=== PATIENT | male | born 1960 | race Caucasian/White ===

== ENCOUNTER 2022-08-09 17:58 | Inpatient (IN) | payer MEDICARE, OTHER ==
[2022-08-09 18:03] LABS: Glucose,Whole Blood 138 mg/dL (70-110)
[2022-08-09] MEDS ORDERED: SODIUM CHLORIDE 0.9% 1,000 ML IV ONE (18:08)
[2022-08-09 18:23] LABS: VBG PH 7.35 (7.31-7.41)
[2022-08-09 18:34] LABS: ALT 13 U/L (4-49); AST 34 U/L (17-59); Acetaminophen <10.0 ug/mL; African American GFR (CKD) >90 (>60 ml/min/1.73 sqM); Albumin 4.1 g/dL (3.5-5.0); Alcohol <10 mg/dL; Alkaline Phosphatase 54 U/L (38-126); Anion Gap 12 mmol/L; Blood Urea Nitrogen 24 mg/dL (9-20); Calcium 8.9 mg/dL (8.4-10.2); Carbon Dioxide 24 mmol/L (22-30); Chloride 102 mmol/L (98-107); Glucose 132 mg/dL (74-99); Non-African American GFR(CKD) >90 (>60 ml/min/1.73 sqM); Potassium 5.1 mmol/L (3.5-5.1); Salicylate <1.0 mg/dL; Sodium 138 mmol/L (137-145); Total Protein 6.4 g/dL (6.3-8.2)
--- NOTE | 2022-08-09 18:43 | CT ---
EXAMINATION TYPE: CT brain wo con DATE OF EXAM: 08/09/2022 HISTORY: AMS CT DLP: 1181.6 mGycm. Automated Exposure Control for Dose Reduction was Utilized. TECHNIQUE: CT scan of the head is performed without contrast. COMPARISON: None. FINDINGS: There is no acute intracranial hemorrhage or midline shift identified. There is diffuse v entricular and sulcal prominence consistent with diffuse age-related cerebral atrophy. There is low- attenuation in the periventricular white matter consistent with chronic small vessel ischemic change. The globes are intact and the visualized sinuses are clear. IMPRESSION: No acute intracranial hemorrhage or midline shift. There is diffuse age-related cerebra l atrophy and chronic small vessel ischemic change noted.
[2022-08-09 18:46] LABS: Lactic Acid, Venous 2.3 mmol/L (0.7-2.0)
[2022-08-09 18:51] LABS: Basophils % (A) 0 %; Eosinophils % (A) 1 %; HCT 36.5 % (39.0-53.0); HGB 12.9 gm/dL (13.0-17.5); Lymphocytes # (A) 0.5 k/uL (1.0-4.8); Lymphocytes % (A) 6 %; MCH 35.1 pg (25.0-35.0); MCHC 35.2 g/dL (31.0-37.0); MCV 99.5 fL (80.0-100.0); Mean Platelet Volume 10.2; Monocytes # (A) 0.4 k/uL (0-1.0); Monocytes % (A) 5 %; Neutrophils # (A) 6.8 k/uL (1.3-7.7); Neutrophils % (A) 88 %; RBC 3.67 m/uL (4.30-5.90); RDW 13.1 % (11.5-15.5); WBC 7.7 k/uL (3.8-10.6)
[2022-08-09 18:54] LABS: INR 1.6 (<1.2); Prothrombin Time 16.3 sec (9.0-12.0)
[2022-08-09 18:55] LABS: Appearance,Urine Clear (Clear); Bilirubin,Urine Negative (Negative); Blood,Urine Negative (Negative); Color,Urine Yellow; Glucose,Urine (UA) Negative (Negative); Ketones,Urine Negative (Negative); Leukocyte Esterase,Urine Negative (Negative); Nitrite,Urine Negative (Negative); PH, Urine 5.5 (5.0-8.0); Protein,Urine Trace (Negative); Specific Gravity,Urine 1.027 (1.001-1.035); Urobilinogen,Urine <2.0 mg/dL (<2.0)
[2022-08-09 18:59] LABS: Partial Thromboplastin Time >200.0 sec (22.0-30.0)
[2022-08-09 19:06] LABS: Amphetamine Screen,Urine Not Detected (NotDetected); Barbiturate Screen,Urine Not Detected (NotDetected); Benzodiazepines Screen,Urine Not Detected (NotDetected); Cocaine Screen,Urine Not Detected (NotDetected); Methadone Screen, Urine Not Detected (NotDetected); Opiate Screen,Urine Not Detected (NotDetected); Oxycodone Screen, Urine Not Detected (NotDetected); Phencyclidine Screen,Urine Not Detected (NotDetected); Tricyclic Antidepressant,Urine Not Detected (NotDetected); Urn Cannabinoid Scrn Not Detected (NotDetected)
--- NOTE | 2022-08-09 19:30 | XR ---
EXAMINATION: XR chest 1V portable DATE AND TIME: 08/09/2022 6:30 PM CLINICAL INDICATION: altered mental status TECHNIQUE: AP upright portable COMPARISON: None FINDINGS: The lungs are clear. The pleural spaces are negative. The cardiac silhouette is not enlarged. The remainder of the mediastinal silhouette is unremarkable. The skeletal structures and soft tissues are negative for acute findings. IMPRESSION: No definite acute radiographic process.
--- NOTE | 2022-08-09 19:58 | CT ---
EXAMINATION TYPE: CT angio head neck with contrast and 3-D reconstructions DATE OF EXAM: 08/09/2022 HISTORY: AMS COMPARISON: CT head without contrast 08/09/2022 CT DLP: 512.6 mGycm. Automated Exposure Control for Dose Reduction was Utilized. TECHNIQUE: CTA scan of the head and neck is performed with IV Contrast, patient injected with 65 mL of Isovue 370, axial images are obtained, coronal and sagittal reformatted images are reviewed. 3D re constructed images are created on an independent workstation and reviewed. FINDINGS: CTA NECK: Carotid/Vascular Structures: The bilateral carotid arterial systems are widely patent, with out filling defect, dissection, or stenosis. There is bilateral atherosclerotic ICA tortuosity. The b ilateral vertebral arterial systems are widely patent, without evidence of dissection or stenosis. Other: No incidental findings. CTA HEAD: The anterior and posterior arterial circulation is widely patent, without filling defect, s tenosis, dissection, or aneurysm. Other: No incidental findings. IMPRESSION: No acute process. NASCET criteria was used in interpretation of this exam?
--- NOTE | 2022-08-09 21:12 | ED ---
General Adult HPI - General Chief complaint: Neuro Symptoms/Deficit Stated complaint: unconscious Time Seen by Provider: 08/09/22 18:00 Source: EMS Mode of arrival: EMS Limitations: altered mental status - History of Present Illness Initial comments: 62-year-old male with past medical history of advanced ALS, who presents to the emergency department with altered mental status. He was last seen in his normal well at 5:30 in the morning by his son who lives with him. Son left for work. He came home around 5 PM and found the patient unresponsive in the garage. The door was closed. The patient was sitting on their riding lawnmower. Lawnmower was running the patient was slumped over to his side unresponsive. Unknown how long the patient has been there for. He had a GCS of 3 for them. They did attempt intubation however the patient was clenching. Upon arrival to the hospital the patient was able to open his eyes and look around. He is not following any commands. Son does arrive to bedside and provides the history. States that his father has advanced ALS. He has difficulty swallowing, eating solid foods. States his speech is extremely hard understand. He does have contractures of his upper extremities. He has difficulties with ambulation and should use a walker however is very stubborn. Patient made comments to him a couple weeks ago that he wanted to go hospice. He goes for routine visits at the ALS clinic - patient is taken to these appointments by his sister. He is with only one son. - Related Data Home Medications Medication Instructions Recorded Confirmed Furosemide [Lasix] 20 mg PO DAILY PRN 08/09/22 08/09/22 Gabapentin [Gabapentin Oral Soln] 300 mg PO TID PRN 08/09/22 08/09/22 Lisinopril-Hctz 20-12.5 mg 1 tab PO DAILY 08/09/22 08/09/22 [Zestoretic 20-12.5] Pantoprazole Sodium [Protonix] 40 mg PO DAILY 08/09/22 08/09/22 Allergies Allergy/AdvReac Type Severity Reaction Status Date / Time No Known Allergies Allergy Unverified 08/09/22 21:19 Review of Systems ROS Statement: Those systems with pertinent positive or pertinent negative responses have been documented in the HPI. ROS Other: All systems not noted in ROS Statement are negative. Past Medical History Past Medical History: CVA/TIA History of Any Multi-Drug Resistant Organisms: Unobtainable Past Surgical History: No Surgical Hx Reported Past Psychological History: Unable to Obtain Smoking Status: Unknown if ever smoked Past Alcohol Use History: Unable to Obtain Past Drug Use History: Unable to Obtain General Exam Limitations: altered mental status General appearance: obtunded, in distress Head exam: Present: atraumatic, normocephalic, normal inspection Eye exam: Present: normal appearance, PERRL, EOMI. Absent: scleral icterus, conjunctival injection, periorbital swelling ENT exam: Present: normal exam, mucous membranes moist Neck exam: Present: normal inspection. Absent: tenderness, meningismus, lymphadenopathy Respiratory exam: Present: decreased breath sounds Cardiovascular Exam: Present: regular rate, normal rhythm, normal heart sounds. Absent: systolic murmur, diastolic murmur, rubs, gallop, clicks GI/Abdominal exam: Present: soft, normal bowel sounds. Absent: distended, tenderness, guarding, rebound, rigid Back exam: Present: normal inspection Neurological exam: Present: altered, other (contractures b/l upper extremites) Psychiatric exam: Present: flat affect Skin exam: Present: other (flushed) Course Vital Signs 08/09/22 08/09/22 08/10/22 17:59 20:27 00:20 Temperature Pulse Rate 99 71 109 H Pulse Rate [ Pulse Oximetery ] Respiratory 16 14 13 Rate Blood Pressure 102/72 96/66 133/67 Blood Pressure [Right Arm] O2 Sat by Pulse 92 L 99 98 Oximetry 08/10/22 08/10/22 08/10/22 02:30 04:48 05:35 Temperature Pulse Rate 110 H 94 94 Pulse Rate [ Pulse Oximetery ] Respiratory 17 13 15 Rate Blood Pressure 165/95 150/58 125/86 Blood Pressure [Right Arm] O2 Sat by Pulse 99 99 98 Oximetry 08/10/22 08/10/22 08/10/22 08:22 12:45 12:50 Temperature 100.2 F H Pulse Rate Pulse Rate [ 89 Pulse Oximetery ] Respiratory 18 18 18 Rate Blood Pressure Blood Pressure 101/63 147/88 [Right Arm] O2 Sat by Pulse 99 98 Oximetry 08/10/22 08/10/22 15:18 16:00 Temperature 99.5 F Pulse Rate Pulse Rate [ 89 82 Pulse Oximetery ] Respiratory 18 16 Rate Blood Pressure Blood Pressure 136/72 [Right Arm] O2 Sat by Pulse 98 Oximetry - Reevaluation(s) Reevaluation #1: Spoke with Dr. Mcpherson to discuss whether the patient should be a candidate for possible hyperbaric due to altered mental status and carbon monoxide poisoning. Recommends pursuing possible transfer 08/09/221909 Reevaluation #2: Spoke with poison control who does provide list of closest hyperbaric chambers 08/09/221924 Reevaluation #3: Spoke with [facility] to attempt to transfer 08/09/221925 Reevaluation #4: C refuses due to capacity 08/09/221999 Reevaluation #5: [facility] contacted for transfer 08/09/[address] Quezada at [facility]. States that the patient would be a candidate for hyperbaric due to his syncope/ams associated with the carbon monoxide poisoning however his advanced ALS disqualifies him. States that the hyperbaric treatment prevents neurologic sequelae 6 months to one year from insult. Patient does not have good prognosis in 6 months due to his ALS alone therefore believe hyperbaric treatments will be futile. This is discussed with family who understands and agreeable to having the patient stay hospitalized at our facility. 08/09/222037 EKG Findings - EKG Comments: EKG Findings:: EKG demonstrates sinus rhythm with a rate of 97. MO interval 188. QRS 109. QTC of 423. No acute ST segment elevations or depressions Medical Decision Making - Medical Decision Making Upon arrival patient was placed into trauma 2. He is arousable to verbal stimuli. IV is established and laboratory studies are conducted. Carbon monoxide is greater than 43. CT of the brain demonstrates no acute process. I did call and speak with Dr. Chavis who does recommend that the patient be transferred if possible for hyperbaric treatment. I did call poison control, [facility] and [facility]. Physician at [facility] states the patient is not a candidate for hyperbaric due to his baseline advanced ALS. This is discussed with the patient's family. Patient will be admitted and a palliative consult will be placed. Spoke with Sergio for [facility] was agreeable to admit the patient - Lab Data Result diagrams: 08/11/22 07:34 08/11/22 07:34 Lab Results 08/09/22 08/09/22 08/09/22 Range/Units 16:40 16:40 18:02 WBC (3.8-10.6) k/uL RBC (4.30-5.90) m/uL Hgb (13.0-17.5) gm/dL Hct (39.0-53.0) % MCV (80.0-100.0) fL MCH (25.0-35.0) pg MCHC (31.0-37.0) g/dL RDW (11.5-15.5) % Plt Count (150-450) k/uL MPV Neutrophils % % Lymphocytes % % Monocytes % % Eosinophils % % Basophils % % Neutrophils # (1.3-7.7) k/uL Lymphocytes # (1.0-4.8) k/uL Monocytes # (0-1.0) k/uL Eosinophils # (0-0.7) k/uL Basophils # (0-0.2) k/uL Manual Slide Review PT (9.0-12.0) sec INR (<1.2) APTT (22.0-30.0) sec VBG pH (7.31-7.41) VBG pCO2 (37-51) mmHg VBG HCO3 (24-28) mmol/L Carbon Monoxide, Quant (<10.0) % Sodium (137-145) mmol/L Potassium (3.5-5.1) mmol/L Chloride (98-107) mmol/L Carbon Dioxide (22-30) mmol/L Anion Gap mmol/L BUN (9-20) mg/dL Creatinine (0.66-1.25) mg/dL Est GFR (CKD-EPI)AfAm (>60 ml/min/1.73 sqM) Est GFR (CKD-EPI)NonAf (>60 ml/min/1.73 sqM) Glucose (74-99) mg/dL POC Glucose (mg/dL) 138 H (70-110) mg/dL POC Glu Final Coat Sprayer ID Junito Raymundo Lactic Ac Sepsis Rflx Plasma Lactic Acid Aureliano (0.7-2.0) mmol/L Calcium (8.4-10.2) mg/dL Total Bilirubin (0.2-1.3) mg/dL AST (17-59) U/L ALT (4-49) U/L Alkaline Phosphatase (38-126) U/L Ammonia (<30) umol/L Troponin I (0.000-0.034) ng/mL Total Protein (6.3-8.2) g/dL Albumin (3.5-5.0) g/dL TSH (0.465-4.680) mIU/L Urine Color Yellow Urine Appearance Clear (Clear) Urine pH 5.5 (5.0-8.0) Ur Specific [place] 1.027 (1.001-1.035) Urine Protein Trace H (Negative) Urine Glucose (UA) Negative (Negative) Urine Ketones Negative (Negative) Urine Blood Negative (Negative) Urine Nitrite Negative (Negative) Urine Bilirubin Negative (Negative) Urine Urobilinogen <2.0 (<2.0) mg/dL Ur Leukocyte Esterase Negative (Negative) Salicylates mg/dL Urine Opiates Screen Not Detected (NotDetected) Ur Oxycodone Screen Not Detected (NotDetected) Urine Methadone Screen Not Detected (NotDetected) Ur Propoxyphene Screen Not Detected (NotDetected) Acetaminophen ug/mL Ur Barbiturates Screen Not Detected (NotDetected) U Tricyclic Antidepress Not Detected (NotDetected) Ur Phencyclidine Scrn Not Detected (NotDetected) Ur Amphetamines Screen Not Detected (NotDetected) U Methamphetamines Scrn Not Detected (NotDetected) U Benzodiazepines Scrn Not Detected (NotDetected) Urine Cocaine Screen Not Detected (NotDetected) U Marijuana (THC) Screen Not Detected (NotDetected) Serum Alcohol mg/dL 08/09/22 08/09/22 08/09/22 Range/Units 18:15 18:15 18:15 WBC 7.7 (3.8-10.6) k/uL RBC 3.67 L (4.30-5.90) m/uL Hgb 12.9 L (13.0-17.5) gm/dL Hct 36.5 L (39.0-53.0) % MCV 99.5 (80.0-100.0) fL MCH 35.1 H (25.0-35.0) pg MCHC 35.2 (31.0-37.0) g/dL RDW 13.1 (11.5-15.5) % Plt Count (150-450) k/uL MPV 10.2 Neutrophils % 88 % Lymphocytes % 6 % Monocytes % 5 % Eosinophils % 1 % Basophils % 0 % Neutrophils # 6.8 (1.3-7.7) k/uL Lymphocytes # 0.5 L (1.0-4.8) k/uL Monocytes # 0.4 (0-1.0) k/uL Eosinophils # 0.0 (0-0.7) k/uL Basophils # 0.0 (0-0.2) k/uL Manual Slide Review Performed PT 16.3 H (9.0-12.0) sec INR 1.6 H (<1.2) APTT >200.0 H* (22.0-30.0) sec VBG pH (7.31-7.41) VBG pCO2 (37-51) mmHg VBG HCO3 (24-28) mmol/L Carbon Monoxide, Quant (<10.0) % Sodium 138 (137-145) mmol/L Potassium 5.1 (3.5-5.1) mmol/L Chloride 102 (98-107) mmol/L Carbon Dioxide 24 (22-30) mmol/L Anion Gap 12 mmol/L BUN 24 H (9-20) mg/dL Creatinine 0.79 (0.66-1.25) mg/dL Est GFR (CKD-EPI)AfAm >90 (>60 ml/min/1.73 sqM) Est GFR (CKD-EPI)NonAf >90 (>60 ml/min/1.73 sqM) Glucose 132 H (74-99) mg/dL POC Glucose (mg/dL) (70-110) mg/dL POC Glu Final Coat Sprayer ID Lactic Ac Sepsis Rflx Plasma Lactic Acid Aureliano (0.7-2.0) mmol/L Calcium 8.9 (8.4-10.2) mg/dL Total Bilirubin 1.0 (0.2-1.3) mg/dL AST 34 (17-59) U/L ALT 13 (4-49) U/L Alkaline Phosphatase 54 (38-126) U/L Ammonia (<30) umol/L Troponin I (0.000-0.034) ng/mL Total Protein 6.4 (6.3-8.2) g/dL Albumin 4.1 (3.5-5.0) g/dL TSH 2.040 (0.465-4.680) mIU/L Urine Color Urine Appearance (Clear) Urine pH (5.0-8.0) Ur Specific [place] (1.001-1.035) Urine Protein (Negative) Urine Glucose (UA) (Negative) Urine Ketones (Negative) Urine Blood (Negative) Urine Nitrite (Negative) Urine Bilirubin (Negative) Urine Urobilinogen (<2.0) mg/dL Ur Leukocyte Esterase (Negative) Salicylates <1.0 mg/dL Urine Opiates Screen (NotDetected) Ur Oxycodone Screen (NotDetected) Urine Methadone Screen (NotDetected) Ur Propoxyphene Screen (NotDetected) Acetaminophen <10.0 ug/mL Ur Barbiturates Screen (NotDetected) U Tricyclic Antidepress (NotDetected) Ur Phencyclidine Scrn (NotDetected) Ur Amphetamines Screen (NotDetected) U Methamphetamines Scrn (NotDetected) U Benzodiazepines Scrn (NotDetected) Urine Cocaine Screen (NotDetected) U Marijuana (THC) Screen (NotDetected) Serum Alcohol <10 mg/dL 08/09/22 08/09/22 08/09/22 Range/Units 18:15 18:15 18:15 WBC (3.8-10.6) k/uL RBC (4.30-5.90) m/uL Hgb (13.0-17.5) gm/dL Hct (39.0-53.0) % MCV (80.0-100.0) fL MCH (25.0-35.0) pg MCHC (31.0-37.0) g/dL RDW (11.5-15.5) % Plt Count (150-450) k/uL MPV Neutrophils % % Lymphocytes % % Monocytes % % Eosinophils % % Basophils % % Neutrophils # (1.3-7.7) k/uL Lymphocytes # (1.0-4.8) k/uL Monocytes # (0-1.0) k/uL Eosinophils # (0-0.7) k/uL Basophils # (0-0.2) k/uL Manual Slide Review PT (9.0-12.0) sec INR (<1.2) APTT (22.0-30.0) sec VBG pH 7.35 (7.31-7.41) VBG pCO2 50 (37-51) mmHg VBG HCO3 28 (24-28) mmol/L Carbon Monoxide, Quant (<10.0) % Sodium (137-145) mmol/L Potassium (3.5-5.1) mmol/L Chloride (98-107) mmol/L Carbon Dioxide (22-30) mmol/L Anion Gap mmol/L BUN (9-20) mg/dL Creatinine (0.66-1.25) mg/dL Est GFR (CKD-EPI)AfAm (>60 ml/min/1.73 sqM) Est GFR (CKD-EPI)NonAf (>60 ml/min/1.73 sqM) Glucose (74-99) mg/dL POC Glucose (mg/dL) (70-110) mg/dL POC Glu Final Coat Sprayer ID Lactic Ac Sepsis Rflx Plasma Lactic Acid Aureliano 2.3 H* (0.7-2.0) mmol/L Calcium (8.4-10.2) mg/dL Total Bilirubin (0.2-1.3) mg/dL AST (17-59) U/L ALT (4-49) U/L Alkaline Phosphatase (38-126) U/L Ammonia <9 (<30) umol/L Troponin I <0.012 (0.000-0.034) ng/mL Total Protein (6.3-8.2) g/dL Albumin (3.5-5.0) g/dL TSH (0.465-4.680) mIU/L Urine Color Urine Appearance (Clear) Urine pH (5.0-8.0) Ur Specific [place] (1.001-1.035) Urine Protein (Negative) Urine Glucose (UA) (Negative) Urine Ketones (Negative) Urine Blood (Negative) Urine Nitrite (Negative) Urine Bilirubin (Negative) Urine Urobilinogen (<2.0) mg/dL Ur Leukocyte Esterase (Negative) Salicylates mg/dL Urine Opiates Screen (NotDetected) Ur Oxycodone Screen (NotDetected) Urine Methadone Screen (NotDetected) Ur Propoxyphene Screen (NotDetected) Acetaminophen ug/mL Ur Barbiturates Screen (NotDetected) U Tricyclic Antidepress (NotDetected) Ur Phencyclidine Scrn (NotDetected) Ur Amphetamines Screen (NotDetected) U Methamphetamines Scrn (NotDetected) U Benzodiazepines Scrn (NotDetected) Urine Cocaine Screen (NotDetected) U Marijuana (THC) Screen (NotDetected) Serum Alcohol mg/dL 08/09/22 08/09/22 Range/Units 18:16 18:46 WBC (3.8-10.6) k/uL RBC (4.30-5.90) m/uL Hgb (13.0-17.5) gm/dL Hct (39.0-53.0) % MCV (80.0-100.0) fL MCH (25.0-35.0) pg MCHC (31.0-37.0) g/dL RDW (11.5-15.5) % Plt Count (150-450) k/uL MPV Neutrophils % % Lymphocytes % % Monocytes % % Eosinophils % % Basophils % % Neutrophils # (1.3-7.7) k/uL Lymphocytes # (1.0-4.8) k/uL Monocytes # (0-1.0) k/uL Eosinophils # (0-0.7) k/uL Basophils # (0-0.2) k/uL Manual Slide Review PT (9.0-12.0) sec INR (<1.2) APTT (22.0-30.0) sec VBG pH (7.31-7.41) VBG pCO2 (37-51) mmHg VBG HCO3 (24-28) mmol/L Carbon Monoxide, Quant >20.0 H* (<10.0) % Sodium (137-145) mmol/L Potassium (3.5-5.1) mmol/L Chloride (98-107) mmol/L Carbon Dioxide (22-30) mmol/L Anion Gap mmol/L BUN (9-20) mg/dL Creatinine (0.66-1.25) mg/dL Est GFR (CKD-EPI)AfAm (>60 ml/min/1.73 sqM) Est GFR (CKD-EPI)NonAf (>60 ml/min/1.73 sqM) Glucose (74-99) mg/dL POC Glucose (mg/dL) (70-110) mg/dL POC Glu Final Coat Sprayer ID Lactic Ac Sepsis Rflx Y Plasma Lactic Acid Aureliano (0.7-2.0) mmol/L Calcium (8.4-10.2) mg/dL Total Bilirubin (0.2-1.3) mg/dL AST (17-59) U/L ALT (4-49) U/L Alkaline Phosphatase (38-126) U/L Ammonia (<30) umol/L Troponin I (0.000-0.034) ng/mL Total Protein (6.3-8.2) g/dL Albumin (3.5-5.0) g/dL TSH (0.465-4.680) mIU/L Urine Color Urine Appearance (Clear) Urine pH (5.0-8.0) Ur Specific [place] (1.001-1.035) Urine Protein (Negative) Urine Glucose (UA) (Negative) Urine Ketones (Negative) Urine Blood (Negative) Urine Nitrite (Negative) Urine Bilirubin (Negative) Urine Urobilinogen (<2.0) mg/dL Ur Leukocyte Esterase (Negative) Salicylates mg/dL Urine Opiates Screen (NotDetected) Ur Oxycodone Screen (NotDetected) Urine Methadone Screen (NotDetected) Ur Propoxyphene Screen (NotDetected) Acetaminophen ug/mL Ur Barbiturates Screen (NotDetected) U Tricyclic Antidepress (NotDetected) Ur Phencyclidine Scrn (NotDetected) Ur Amphetamines Screen (NotDetected) U Methamphetamines Scrn (NotDetected) U Benzodiazepines Scrn (NotDetected) Urine Cocaine Screen (NotDetected) U Marijuana (THC) Screen (NotDetected) Serum Alcohol mg/dL Critical Care Time Critical Care Time: Yes Critical Care Time: 35 minutes Disposition Clinical Impression: Carbon monoxide poisoning, Acute encephalopathy, ALS (amyotrophic lateral sclerosis) Disposition: ADMITTED IP TO THIS [facility] Condition: Serious Is patient prescribed a controlled substance at d/c from ED?: No Time of Disposition: 21:14 Decision to Admit Reason: Admit from EC Decision Date: 08/09/22 Decision Time: 21:14
[2022-08-09] MEDS ORDERED: NALOXONE 0.4 MG/ML 1 ML VIAL IV PRN (21:20)
[2022-08-10 03:03] LABS: Basophils % (A) 0 %; Eosinophils % (A) 0 %; HCT 37.4 % (39.0-53.0); HGB 12.8 gm/dL (13.0-17.5); Lymphocytes # (A) 0.5 k/uL (1.0-4.8); Lymphocytes % (A) 7 %; MCH 34.2 pg (25.0-35.0); MCHC 34.2 g/dL (31.0-37.0); MCV 99.8 fL (80.0-100.0); Mean Platelet Volume 8.1; Monocytes # (A) 0.3 k/uL (0-1.0); Monocytes % (A) 5 %; Neutrophils # (A) 6.3 k/uL (1.3-7.7); Neutrophils % (A) 87 %; Platelet Count 192 k/uL (150-450); RBC 3.75 m/uL (4.30-5.90); RDW 12.9 % (11.5-15.5); WBC 7.2 k/uL (3.8-10.6)
[2022-08-10 03:34] LABS: African American GFR (CKD) >90 (>60 ml/min/1.73 sqM); Anion Gap 9 mmol/L; Blood Urea Nitrogen 20 mg/dL (9-20); Carbon Dioxide 25 mmol/L (22-30); Chloride 103 mmol/L (98-107); Glucose 129 mg/dL (74-99); Non-African American GFR(CKD) >90 (>60 ml/min/1.73 sqM); Potassium 4.4 mmol/L (3.5-5.1); Sodium 137 mmol/L (137-145)
[2022-08-10] MEDS ORDERED: ACETAMINOPHEN SUPPOSITORY 650 MG SUPP RECTAL PRN (08:35)
--- NOTE | 2022-08-10 08:54 | P.HPIM ---
History of Present Illness On-call hospitalist covering for Dr. Simeon This is a pleasant 62 years old male with past medical history of CVA/TIA, currently not on home medication record documents. Patient could not provide information, no family at bedside. I made an effort to contact next of kin Roxana figueredo at [phone] and left a message to call back. Also I contacted his son Lencho Betancourt at [phone], there is no voicemail setup placed for him and I called the twice. No family at bedside. Also the bedside nurse did not have information about the patient. ER attending overnight already left. Patient is on face mask with nonrebreather 15 L/m, he does not look in respiratory distress. He looks at me but looks nonverbal, he can communicate by closing eyes when I ask him. However not sure if he is confused on. I asked him if he is in pain to close his eyes and he did, however is unknown where the pain at. Patient placed a lidocaine patch and Tylenol rectally when necessary. It looks patient and able to move both upper and lower extremities. He has some mild bilateral leg edema probably from disuse ER note was reviewed Vitas looks stable He was on nonrebreather at 12-15 L/m On admission,currently his oxygen saturation is 98%. Mildly tachycardic at 94. CBC is unremarkable except for mild anemia and leukopenia. INR is 1.6 but PTT more than 200. Carbon monoxide is more than 20 BMP is unremarkable. Liver enzymes elevated. Troponin is negative 2. TSH normal at 2.0. Negative salicylate, acetaminophen levels and serum alcohol level EKG showing normal sinus rhythm at [address]-T changes CTA of the brain and neck no acute process for both. CT of the brain: No acute process. There is diffuse cerebral atrophy and chronic small vessel ischemic changes. Chest x-ray: No process In the emergency room patient received 1 L of normal saline. Review of Systems ROS unobtainable: due to mental status Past Medical History Past Medical History: CVA/TIA History of Any Multi-Drug Resistant Organisms: Unobtainable Past Surgical History: No Surgical Hx Reported Past Psychological History: Unable to Obtain Smoking Status: Unknown if ever smoked Past Alcohol Use History: Unable to Obtain Past Drug Use History: Unable to Obtain Medications and Allergies Home Medications Medication Instructions Recorded Confirmed Type Furosemide [Lasix] 20 mg PO DAILY PRN 08/09/22 08/09/22 History Gabapentin [Gabapentin Oral Soln] 300 mg PO TID PRN 08/09/22 08/09/22 History Lisinopril-Hctz 20-12.5 mg 1 tab PO DAILY 08/09/22 08/09/22 History [Zestoretic 20-12.5] Pantoprazole Sodium [Protonix] 40 mg PO DAILY 08/09/22 08/09/22 History Allergies Allergy/AdvReac Type Severity Reaction Status Date / Time No Known Allergies Allergy Unverified 08/09/22 21:19 Physical Exam Vitals: Vital Signs Pulse Resp BP BP Pulse Ox 08/10/22 08:22 18 101/63 99 08/10/22 05:35 94 15 125/86 98 08/10/22 04:48 94 13 150/58 99 08/10/22 02:30 110 H 17 165/95 99 08/10/22 00:20 109 H 13 133/67 98 08/09/22 20:27 71 14 96/66 99 08/09/22 17:59 99 16 102/72 92 L Intake and Output 08/09/22 08/10/22 08/10/22 22:59 06:59 14:59 Other: Weight 83.915 kg -GENERAL: The patient is awake, he can close his eyes but he did not talk to me, he could not move extremities HEENT: Pupils are round and equally reacting to light. EOMI. No scleral icterus. No conjunctival pallor. Normocephalic, atraumatic. No pharyngeal erythema. No thyromegaly. CARDIOVASCULAR: S1 and S2 present. No murmurs, rubs, or gallops. -PULMONARY: Chest is clear to auscultation, no wheezing or crackles. Patient on a breathing mask ABDOMEN: Soft, nontender, nondistended, normoactive bowel sounds. No palpable organomegaly. MUSCULOSKELETAL: No joint swelling or deformity. EXTREMITIES: No cyanosis, clubbing, or pedal edema. -NEUROLOGICAL: Patient complained eyes but has mask face, not moving upper or lower extremities. Exam is limited by patient condition SKIN: No rashes. no petechiae. Results CBC & Chem 7: 08/10/22 02:35 08/10/22 02:35 Labs: Abnormal Lab Results - Last 24 Hours (Table) 08/09/22 08/09/22 08/09/22 Range/Units 16:40 18:02 18:15 RBC 3.67 L (4.30-5.90) m/uL Hgb 12.9 L (13.0-17.5) gm/dL Hct 36.5 L (39.0-53.0) % MCH 35.1 H (25.0-35.0) pg Lymphocytes # 0.5 L (1.0-4.8) k/uL PT (9.0-12.0) sec INR (<1.2) APTT (22.0-30.0) sec Carbon Monoxide, Quant (<10.0) % BUN (9-20) mg/dL Glucose (74-99) mg/dL POC Glucose (mg/dL) 138 H (70-110) mg/dL Plasma Lactic Acid Aureliano (0.7-2.0) mmol/L Urine Protein Trace H (Negative) 08/09/22 08/09/22 08/09/22 Range/Units 18:15 18:15 18:15 RBC (4.30-5.90) m/uL Hgb (13.0-17.5) gm/dL Hct (39.0-53.0) % MCH (25.0-35.0) pg Lymphocytes # (1.0-4.8) k/uL PT 16.3 H (9.0-12.0) sec INR 1.6 H (<1.2) APTT >200.0 H* (22.0-30.0) sec Carbon Monoxide, Quant (<10.0) % BUN 24 H (9-20) mg/dL Glucose 132 H (74-99) mg/dL POC Glucose (mg/dL) (70-110) mg/dL Plasma Lactic Acid Aureliano 2.3 H* (0.7-2.0) mmol/L Urine Protein (Negative) 08/09/22 08/10/22 08/10/22 Range/Units 18:16 02:35 02:35 RBC 3.75 L (4.30-5.90) m/uL Hgb 12.8 L (13.0-17.5) gm/dL Hct 37.4 L (39.0-53.0) % MCH (25.0-35.0) pg Lymphocytes # 0.5 L (1.0-4.8) k/uL PT (9.0-12.0) sec INR (<1.2) APTT (22.0-30.0) sec Carbon Monoxide, Quant >20.0 H* (<10.0) % BUN (9-20) mg/dL Glucose 129 H (74-99) mg/dL POC Glucose (mg/dL) (70-110) mg/dL Plasma Lactic Acid Aureliano (0.7-2.0) mmol/L Urine Protein (Negative) Assessment and Plan Assessment: Acute Carbon monoxide poisoning Advanced amyotrophic lateral sclerosis Altered mental status, secondary to metabolic/toxic encephalopathy Plan: This is a pleasant 62 years old male with a ALS presents with CO poisoning No family at bedside, I called and left a message as above the response is pending We'll consult pulmonary and neurology service Keep nothing by mouth with gentle hydration and change his fluids to D5 normal saline at 75 mL/h Pain management with lidocaine and Tylenol when necessary. Labs and medication were reviewed.. Continue same treatment. Continue with symptomatic treatment. Resume home medication. Monitor lytes and vitals. DVT and GI prophylaxis. Further recommendations as per clinical course of the patient DVT prophylaxis: Subcutaneous heparin GI Prophylaxis: Pepcid Prognosis is guarded
[2022-08-10] MEDS ORDERED: LIDOCAINE 5% PATCH TOPICAL SCH (09:00)
[2022-08-10] MEDS ORDERED: HEPARIN SODIUM,PORCINE/PF 5,000 UNIT/0.5 ML SYRINGE SQ SCH (09:00)
[2022-08-10] MEDS: DEXTROSE 5%-0.9% NACL 1,000 ML IV SCH (10:16)
[2022-08-10] MEDS: FAMOTIDINE 20 MG/2 ML VIAL IV SCH ×2 (10:17→20:45)
--- NOTE | 2022-08-10 10:34 | P.PN ---
Progress Note - Text Progress Note Date: 08/10/22 Patient awake and attempting to answer questions. Cannot understand speech secondary to ALS and NR mask. He does follow commands. Attempted to call his son, Lencho, to set up a meeting. No answer and no option to leave a voicemail. Spoke with the patient's sister, Roxana, she stated that Lencho has POA and suggested calling him again later. She thinks he was at the hospital late and is probable sleeping. Palliative care information and contact number left at the patient's bedside. Ashley Serrano [facility] Palliative Care [facility] [phone] Email: [email or web address]
[2022-08-10] MEDS: SODIUM CHLORIDE 0.9% 1,000 ML IV SCH ×2 (12:17→12:29)
--- NOTE | 2022-08-10 12:54 | P.CNPUL ---
History of Present Illness Consult date: 08/10/22 Requesting physician: Cristhian Daugherty Reason for consult: other (Carbon dioxide poisoning) Chief complaint: Altered mental status History of present illness: This is a 62-year-old male patient with a known history of hypertension, gastroesophageal reflux disease, CVA/TIA and also has amyotrophic lateral sclerosis/ALS. He has advanced ALS with difficulty in swallowing, difficulty in speech and contracted upper extremities and resides with his son. Yesterday he was seen by his son at 5:30 in the morning prior to him going to work. When the son got home at 5 PM he found his father in the garage slumped over on the riding lawnmower that had been running. Unknown downtime. EMS arrived and found him having G CSF 3 and they did attempt to intubate the patient however were unable to due to patient clenching his teeth. Upon arrival to the emergency room he was awake and looking around. According to the son who is at the patient's bedside the patient mentioned a couple weeks ago wanting to go into hospice. Computed tomography scan of the brain revealed no acute intracranial hemorrhage or midline shift. Chest x-ray revealed no acute process. CT angiogram of the head and neck revealed widely patent arterial circulation with no incidental findings. White count 7.2. Hemoglobin 12.8. Sodium 137. Potassium 4.4. Bicarb 25. BUN 20. Creatinine 0.67. Troponins negative 2. Serum alcohol, acetaminophen and salicylate levels were all negative. He was found to have carbon monoxide greater than 20. There were initial attempts to transfer the patient for hyperbaric therapy however due to his advanced ALS this was felt to be futile and was not accepted. He is admitted here for continued monitoring. He is seen today in the emergency department. His eyes are open. He has attempting to talk. His speech is quite garbled. He does follow simple commands. He is currently on 15 L high flow via a nonrebreather mask. O2 saturations in the high 90s. Review of Systems ROS unobtainable: due to mental status Past Medical History Past Medical History: CVA/TIA History of Any Multi-Drug Resistant Organisms: Unobtainable Past Surgical History: No Surgical Hx Reported Past Psychological History: Unable to Obtain Smoking Status: Unknown if ever smoked Past Alcohol Use History: Unable to Obtain Past Drug Use History: Unable to Obtain Medications and Allergies Home Medications Medication Instructions Recorded Confirmed Type Furosemide [Lasix] 20 mg PO DAILY PRN 08/09/22 08/09/22 History Gabapentin [Gabapentin Oral Soln] 300 mg PO TID PRN 08/09/22 08/09/22 History Lisinopril-Hctz 20-12.5 mg 1 tab PO DAILY 08/09/22 08/09/22 History [Zestoretic 20-12.5] Pantoprazole Sodium [Protonix] 40 mg PO DAILY 08/09/22 08/09/22 History Allergies Allergy/AdvReac Type Severity Reaction Status Date / Time No Known Allergies Allergy Unverified 08/09/22 21:19 Physical Exam Vitals: Vital Signs Pulse Resp BP BP Pulse Ox 08/10/22 08:22 18 101/63 99 08/10/22 05:35 94 15 125/86 98 08/10/22 04:48 94 13 150/58 99 08/10/22 02:30 110 H 17 165/95 99 08/10/22 00:20 109 H 13 133/67 98 08/09/22 20:27 71 14 96/66 99 08/09/22 17:59 99 16 102/72 92 L Intake and Output 08/09/22 08/10/22 08/10/22 22:59 06:59 14:59 Other: Weight 83.915 kg GENERAL EXAM: Alert, weak, debilitated 72-year-old male patient, 15 L high flow nonrebreather mask, in no apparent distress. HEAD: Normocephalic. EYES: Normal reaction of pupils, equal size. NOSE: Clear with pink turbinates. THROAT: No erythema or exudates. NECK: No masses, no JVD. CHEST: No chest wall deformity. LUNGS: Equal air entry with no crackles, wheeze, rhonchi or dullness. CVS: S1 and S2 normal with no audible murmur, regular rhythm. ABDOMEN: No hepatosplenomegaly, normal bowel sounds, no guarding or rigidity. SPINE: No scoliosis or deformity SKIN: No rashes CENTRAL NERVOUS SYSTEM: No focal deficits, tone is normal in all 4 extremities. EXTREMITIES: Upper extremity contractures. Peripheral pulses are intact. Results - Laboratory Findings CBC and BMP: 08/10/22 02:35 08/10/22 02:35 PT/INR, D-dimer PT 16.3 sec (9.0-12.0) H 08/09/22 18:15 INR 1.6 (<1.2) H 08/09/22 18:15 Abnormal lab findings: Abnormal Labs 08/09/22 08/09/22 08/09/22 16:40 18:02 18:15 RBC 3.67 L Hgb 12.9 L Hct 36.5 L MCH 35.1 H Lymphocytes # 0.5 L PT INR APTT Carbon Monoxide, Quant BUN Glucose POC Glucose (mg/dL) 138 H Plasma Lactic Acid Aureliano Urine Protein Trace H 08/09/22 08/09/22 08/09/22 18:15 18:15 18:15 RBC Hgb Hct MCH Lymphocytes # PT 16.3 H INR 1.6 H APTT >200.0 H* Carbon Monoxide, Quant BUN 24 H Glucose 132 H POC Glucose (mg/dL) Plasma Lactic Acid Aureliano 2.3 H* Urine Protein 08/09/22 08/10/22 08/10/22 18:16 02:35 02:35 RBC 3.75 L Hgb 12.8 L Hct 37.4 L MCH Lymphocytes # 0.5 L PT INR APTT Carbon Monoxide, Quant >20.0 H* BUN Glucose 129 H POC Glucose (mg/dL) Plasma Lactic Acid Aureliano Urine Protein - Diagnostic Findings Chest x-ray: image reviewed Assessment and Plan Assessment: Altered mental status secondary to carbon monoxide poisoning in an apparent suicide attempt due to advanced amyotrophic lateral sclerosis/ALS Advanced ALS with garbled speech, difficulty swallowing, upper extremity contractures and weakness. Initially following at an a ALS clinic History of previous CVA/C TIA Hypertension Gastroesophageal reflux disease Plan: The patient was seen and evaluated Chest x-ray, CAT scans and medications reviewed Transition to 15 L high flow nasal cannula Continue with high FiO2 treatment His ALS is quite advanced and terminal Palliative care consult in place Repeat a carbon monoxide level We will continue to follow and make further recommendations based on his clinical status I have personally seen and examined the patient, performed the documentation and the assessment and plan as written. Number of minutes spent on the visit: 20.
[2022-08-10] MEDS ORDERED: ACETAMINOPHEN IV (For NPO) 1,000 MG in EMPTY BAG 1 BAG IVPB SCH (18:00)
[2022-08-10] MEDS: ACETAMINOPHEN IV (For NPO) 1,000 MG in EMPTY BAG 1 BAG IVPB SCH (20:45)
[2022-08-10] MEDS ORDERED: HYDROmorphone 0.5 MG/0.5 ML SYRINGE IVP STA (22:45)
[2022-08-11] MEDS: ACETAMINOPHEN IV (For NPO) 1,000 MG in EMPTY BAG 1 BAG IVPB SCH ×3 (01:22→15:54)
[2022-08-11] MEDS: DEXTROSE 5%-0.9% NACL 1,000 ML IV SCH ×2 (02:22→15:49)
[2022-08-11 09:31] LABS: African American GFR (CKD) >90 (>60 ml/min/1.73 sqM); Anion Gap 5 mmol/L; Blood Urea Nitrogen 15 mg/dL (9-20); Calcium 8.1 mg/dL (8.4-10.2); Carbon Dioxide 28 mmol/L (22-30); Chloride 106 mmol/L (98-107); Glucose 97 mg/dL (74-99); Magnesium 1.8 mg/dL (1.6-2.3); Non-African American GFR(CKD) >90 (>60 ml/min/1.73 sqM); Sodium 139 mmol/L (137-145)
[2022-08-11 09:43] LABS: Basophils % (A) 0 %; Eosinophils # (A) 0.1 k/uL (0-0.7); Eosinophils % (A) 1 %; HCT 36.4 % (39.0-53.0); HGB 12.1 gm/dL (13.0-17.5); Lymphocytes # (A) 0.5 k/uL (1.0-4.8); Lymphocytes % (A) 11 %; MCH 34.2 pg (25.0-35.0); MCHC 33.3 g/dL (31.0-37.0); MCV 102.7 fL (80.0-100.0); Macrocytosis Slight; Mean Platelet Volume 8.4; Monocytes # (A) 0.3 k/uL (0-1.0); Monocytes % (A) 7 %; Neutrophils # (A) 3.8 k/uL (1.3-7.7); Neutrophils % (A) 80 %; Platelet Count 145 k/uL (150-450); RBC 3.54 m/uL (4.30-5.90); RDW 13.3 % (11.5-15.5); WBC 4.8 k/uL (3.8-10.6)
[2022-08-11] MEDS: FAMOTIDINE 20 MG/2 ML VIAL IV SCH ×2 (09:54→21:05)
[2022-08-11] MEDS: LIDOCAINE 5% PATCH TOPICAL SCH (09:54)
--- NOTE | 2022-08-11 10:16 | P.PN ---
Subjective This is a pleasant 62 years old male with past medical history of CVA/TIA, currently not on home medication record documents. Patient could not provide information, no family at bedside. I made an effort to contact next of kin Roxana figueredo at [phone] and left a message to call back. Also I contacted his son Lencho Betancourt at [phone], there is no voicemail setup placed for him and I called the twice. No family at bedside. Also the bedside nurse did not have information about the patient. ER attending overnight already left. Patient is on face mask with nonrebreather 15 L/m, he does not look in respiratory distress. He looks at me but looks nonverbal, he can communicate by closing eyes when I ask him. However not sure if he is confused on. I asked him if he is in pain to close his eyes and he did, however is unknown where the pain at. Patient placed a lidocaine patch and Tylenol rectally when necessary. It looks patient and able to move both upper and lower extremities. He has some mild bilateral leg edema probably from disuse ER note was reviewed Vitas looks stable He was on nonrebreather at 12-15 L/m On admission,currently his oxygen saturation is 98%. Mildly tachycardic at 94. CBC is unremarkable except for mild anemia and leukopenia. INR is 1.6 but PTT more than 200. Carbon monoxide is more than 20 BMP is unremarkable. Liver enzymes elevated. Troponin is negative 2. TSH normal at 2.0. Negative salicylate, acetaminophen levels and serum alcohol level EKG showing normal sinus rhythm at [address]-T changes CTA of the brain and neck no acute process for both. CT of the brain: No acute process. There is diffuse cerebral atrophy and chronic small vessel ischemic changes. Chest x-ray: No process In the emergency room patient received 1 L of normal saline. 08/11/2022 Patient is more awake today, he follows commands, he can answer my questions with one warts and multiple sounds, when I ask him whether complain of decreased pain, and he asked him where at he told pain all over. A total visit chronic orally 4 days he says days but he could not specify. Patient receives one-time dose of Dilaudid, he is also on Tylenol 1000 from every 6 hours. We will increase his lidocaine patch into 2 of them. His CR level and Barbara wants excised decreased from more than 20 down to 1.8 yesterday. His breathing is stable and his mentation is improving. Currently he is on total liter per minute of oxygen via facial mask. Other vitals are stable. Labs stable. He had low-grade temperature yesterday 100.2, no more fever, no other signs of infection. He remains on gentle hydration D5 normal saline at 75 mL/h. Sitter at bedside for source of the precaution. Monitor PTT. Review of bladder scan I talked to Lencho Betancourt Which Covers the Same Them and Has Power Of Field Operations Farm Manager. He Told Me That His Father Has ALS for about 2 Years and He Follow-Up with [facility] Clinic in [facility]. At baseline he can walk by himself with no cane, he has daily difficulty talking, He can feed himself and cleaning himself over its hard for him to eat so he has to use small bites, he did help also with getting in and out of the shower. Physical me his father except. His wishes to be under hospice care and that his son and his sister was trying to get him into hospice, his son confirmed to me that he is DO NOT RESUSCITATE , were discussed with him, he wants to hold on hospice for now to full evaluation. Prognosis remains guarded Objective - Vital Signs Vital signs: Vital Signs Temp 98 F 08/11/22 04:00 Pulse 69 08/11/22 04:00 Resp 16 08/11/22 04:00 BP 130/77 08/11/22 04:00 Pulse Ox 100 08/11/22 04:00 FiO2 Intake & Output 08/10/22 08/11/22 08/11/22 18:59 06:59 18:59 Intake Total 375 Output Total 1200 Balance 375 -1200 Weight 83.915 kg Intake: Intake, IV Titration 375 Amount Dextrose 5%-0.9% NaCl 1, 375 000 ml @ 75 mls/hr IV . [id number] [facility] Rx#:[id number] Output: Urine 1200 Other: Voiding Method Indwelling Catheter Indwelling Catheter - Exam -GENERAL: The patient is more awake, he can consider with one towards and he follows commands but slow to move,, his sounds looks muffled. HEENT: Pupils are round and equally reacting to light. EOMI. No scleral icterus. No conjunctival pallor. Normocephalic, atraumatic. No pharyngeal erythema. No thyromegaly. CARDIOVASCULAR: S1 and S2 present. No murmurs, rubs, or gallops. -PULMONARY: Chest is clear to auscultation, no wheezing or crackles. Patient on a breathing mask ABDOMEN: Soft, nontender, nondistended, normoactive bowel sounds. No palpable organomegaly. MUSCULOSKELETAL: No joint swelling or deformity. EXTREMITIES: No cyanosis, clubbing, or pedal edema. -NEUROLOGICAL: Patient complained eyes but has mask face, not moving upper or lower extremities. Exam is limited by patient condition SKIN: No rashes. no petechiae. More - Labs CBC & Chem 7: 08/11/22 07:34 08/11/22 07:34 Labs: Abnormal Lab Results - Last 24 Hours (Table) 08/11/22 Range/Units 07:34 Creatinine 0.59 L (0.66-1.25) mg/dL Calcium 8.1 L (8.4-10.2) mg/dL Assessment and Plan Assessment: Acute Carbon monoxide poisoning Advanced amyotrophic lateral sclerosis Dysarthria secondary to above, rule out dysphagia Altered mental status, secondary to metabolic/toxic encephalopathy Plan: This is a pleasant 62 years old male with a ALS presents with CO poisoning Check swallow evaluation Follow-up with neurology and pulmonary service recommendation Keep nothing by mouth with gentle hydration and change his fluids to D5 normal saline at 75 mL/h Pain management with lidocaine and Tylenol when necessary. We will try to limit the narcotics so we can monitor his mentation as well. Labs and medication were reviewed.. Continue same treatment. Continue with symptomatic treatment. Resume home medication. Monitor lytes and vitals. DVT and GI prophylaxis. Further recommendations as per clinical course of the patient DVT prophylaxis: Subcutaneous heparin GI Prophylaxis: Pepcid Prognosis is guarded
[2022-08-11 11:27] LABS: Partial Thromboplastin Time 25.5 sec (22.0-30.0); Prothrombin Time 10.7 sec (9.0-12.0)
--- NOTE | 2022-08-11 13:21 | P.PN ---
Subjective Progress Note Date: 08/11/22 Principal diagnosis: Acute carbon dioxide poisoning and ALS. This is a 62-year-old male patient with a known history of hypertension, gastroesophageal reflux disease, CVA/TIA and also has amyotrophic lateral sclerosis/ALS. He has advanced ALS with difficulty in swallowing, difficulty in speech and contracted upper extremities and resides with his son. Yesterday he was seen by his son at 5:30 in the morning prior to him going to work. When the son got home at 5 PM he found his father in the garage slumped over on the riding lawnmower that had been running. Unknown downtime. EMS arrived and found him having G CSF 3 and they did attempt to intubate the patient however w ere unable to due to patient clenching his teeth. Upon arrival to the emergency room he was awake and looking around. According to the son who is at the patient's bedside the patient mentioned a couple weeks ago wanting to go into hospice. Computed tomography scan of the brain revealed no acute intracranial hemorrhage or midline shift. Chest x-ray revealed no acute process. CT angiogram of the head and neck revealed widely patent arterial circulation with no incidental findings. White count 7.2. Hemoglobin 12.8. Sodium 137. Potassium 4.4. Bicarb 25. BUN 20. Creatinine 0.67. Troponins negative 2. Serum alcohol, acetaminophen and salicylate levels were all negative. He was found to have carbon monoxide greater than 20. There were initial attempts to transfer the patient for hyperbaric therapy however due to his advanced ALS this was felt to be futile and was not accepted. He is admitted here for continued monitoring. He is seen today in the emergency department. His eyes are open. He has attempting to talk. His speech is quite garbled. He does follow simple commands. He is currently on 15 L high flow via a nonrebreather mask. O2 saturations in the high 90s. Reevaluated today on 08/11/22, patient seems to be doing much better today. He is very comfortable, he is now on room air, his O2 sats 98%, he is hemodynamically stable, he is generally weak, and bedbound. Speech is garbled. Nonetheless the patient seems to comprehend questions. Apparently psychiatry was consulted on the patient, and the patient is being considered for possible hospice. I believe that would be very appropriate considering his grave prognosis with ALS. Labs today were basically unremarkable. Electrolytes are normal. Renal profile is normal Objective - Vital Signs Vital signs: Vital Signs Temp 97.4 F L 08/11/22 12:00 Pulse 56 L 08/11/22 12:00 Resp 14 08/11/22 12:00 BP 120/66 08/11/22 12:00 Pulse Ox 98 08/11/22 12:28 FiO2 Intake & Output 08/10/22 08/11/22 08/11/22 18:59 06:59 18:59 Intake Total 375 Output Total 1200 Balance 375 -1200 Weight 83.915 kg Intake: Intake, IV Titration 375 Amount Dextrose 5%-0.9% NaCl 1, 375 000 ml @ 75 mls/hr IV . [id number] [facility] Rx#:[id number] Output: Urine 1200 Other: Voiding Method Indwelling Catheter Indwelling Catheter Indwelling Catheter - Exam GENERAL EXAM: Revealed a 62-year-old white male weak, garbled speech, in no distress on room air. HEAD: Normocephalic. EYES: Normal reaction of pupils, equal size. NOSE: Clear with pink turbinates. THROAT: No erythema or exudates. NECK: No masses, no JVD. CHEST: No chest wall deformity. LUNGS: Symmetrical chest expansion, clear bilaterally slightly diminished at the bases. CVS: S1 and S2 normal with no audible murmur, regular rhythm. ABDOMEN: Soft nontender no megaly no rebound no guarding. SKIN: No rashes CENTRAL NERVOUS SYSTEM: Generally weak, significant muscle atrophy noted bilaterally. Speech is garbled secondary to ALS. EXTREMITIES: Upper extremity contractures. Peripheral pulses are intact. - Labs CBC & Chem 7: 08/11/22 07:34 08/11/22 07:34 Labs: Abnormal Lab Results - Last 24 Hours (Table) 08/11/22 08/11/22 Range/Units 07:34 07:34 RBC 3.54 L (4.30-5.90) m/uL Hgb 12.1 L (13.0-17.5) gm/dL Hct 36.4 L (39.0-53.0) % MCV 102.7 H (80.0-100.0) fL Plt Count 145 L (150-450) k/uL Lymphocytes # 0.5 L (1.0-4.8) k/uL Creatinine 0.59 L (0.66-1.25) mg/dL Calcium 8.1 L (8.4-10.2) mg/dL Assessment and Plan Assessment: Impression: Acute carbon monoxide poisoning, apparent suicidal attempt due to advanced ALS. Advanced ALS Previous history of CVA/TIA Benign essential hypertension GERD without esophagitis Recommendation: Agree with psychiatry consultation Agree with hospice or palliative care treatment Not much to be added from our perspective We will sign off and see the patient on when necessary basis Time with Patient: Less than 30
[2022-08-11] MEDS ORDERED: MORPHINE SULFATE 2 MG/ML SYRINGE IVP PRN (13:48)
[2022-08-11 15:09] LABS: Appearance,Urine Clear (Clear); Bilirubin,Urine Negative (Negative); Blood,Urine Negative (Negative); Color,Urine Yellow; Glucose,Urine (UA) Negative (Negative); Ketones,Urine Negative (Negative); Leukocyte Esterase,Urine Negative (Negative); Nitrite,Urine Negative (Negative); PH, Urine 6.5 (5.0-8.0); Protein,Urine Negative (Negative); Specific Gravity,Urine 1.026 (1.001-1.035)
[2022-08-11] MEDS: MORPHINE SULFATE 2 MG/ML SYRINGE IVP PRN ×2 (18:23→23:04)
--- NOTE | 2022-08-11 20:19 | P.PN ---
Progress Note - Text Progress Note Date: 08/11/22 Patient seen earlier this afternoon with family at bedside for psychiatry consult. Recommendations discussed with patient, family and nurse. Please continue 1:1 sitter at this time. Agree with plans for palliative consult and hospice. Full consult note to follow.
[2022-08-12] MEDS: MORPHINE SULFATE 2 MG/ML SYRINGE IVP PRN ×6 (03:32→20:53)
[2022-08-12] MEDS: DEXTROSE 5%-0.9% NACL 1,000 ML IV SCH ×2 (05:56→18:31)
--- NOTE | 2022-08-12 07:35 | P.CNNES ---
History of Present Illness Consult date: 08/11/22 Requesting physician: Cristhian Daugherty Reason for Consult: ALS History of Present Illness: Patient is a 62-year-old male who has been diagnosed with ALS for about 2 years was brought to the hospital by ambulance on 08/09/2022 at 5:58 PM for intentional carbon monoxide poisoning. Patient not able to provide any history, therefore history obtained from patient's son. Patient so far has been able to walk without any assistive device, although he does stumble but no frequent falls. Patient's symptoms of ALS mainly involves bulbar region with involvement of his speech and some swallowing difficulty. Patient apparently was admitted to the hospital because of suicide attempt with carbon monoxide poisoning. As per EMS flow sheet when they arrived, patient was in the driveway sitting on his 0 turned riding lawnmower veering are non-breather receiving high flow oxygen. 5 department on the scene prior to EMS arrival states patient was found in his garage sitting on his lawnmower while it was I doing and he was slumped over to the right side. Garage was closed. Fuel tank is still full, however the lawnmower being newer model is a low fuel consumption antineutrophilic. Patient is unresponsive completely. Patient has no visible trauma noted. No evidence of drug or alcohol usage. Patient was last seen by his son at 5:30 AM before he went for work. Patient was fine this morning before he went to work until he came back and found him in the garage with the garage door closed. Patient does have a very flushed appearance and presenting with signs and symptoms of acute carbon monoxide poisoning. Patient was loaded in the ambulance. Patient's pupils are equal, round and reacting. Patient's blood pressure is 131/66% and 95 respiration 20 and saturation 91% and blood sugar 166. Patient's blood test on arrival CBC with hemoglobin 12.9, normal platelets 192. Patient's PTT was > 200 and carbon monoxide level was > 20.0. Electrolytes are normal, BUN 24 cranial 0.79. Plasma lactate was 2.3. Hepatic panel is normal TSH and troponin are normal. UA negative, urine drug screen, blood alcohol l evel are negative. Salicylate and Tylenol negative. Patient's repeat carbon more monoxide level is 1.8. CT head showed no acute process. There is diffuse age-related cerebral atrophy and chronic small vessel ischemic change noted. On my review, it appears patient does have evidence of hypodensity in the bilateral pallidum, which is typical of carbon monoxide poisoning. Patient at present is laying comfortably in the bed. He appears slightly withdrawn, appears somewhat edgy while he is being questioned or examined. Patient's son was also present. Patient's son has mentioned that about a week prior to this incident, he has been mentioning about hospice care for him because of advanced ALS. Patient's son does not know name of his neurologist. He states that initially the neurologist felt that he may be suffering from strokes. However the diagnosis was done about 2 years ago. He still is able to walk without any assistive device although he stumbles. He has significant involvement of bulbar region. Review of Systems Significant for dysarthria, dysphagia related to ALS. Patient has depression. Otherwise patient not able to provide any review of systems. I spoke to the nurse and patient's family member who could not provide any other review of systems as well. ROS unobtainable: due to mental status Past Medical History Past Medical History: CVA/TIA Additional Past Medical History / Comment(s): ALS History of Any Multi-Drug Resistant Organisms: Unobtainable Past Surgical History: No Surgical Hx Reported Past Anesthesia/Blood Transfusion Reactions: No Reported Reaction Past Psychological History: Unable to Obtain Smoking Status: Former smoker, Unknown if ever smoked Past Alcohol Use History: Unable to Obtain Past Drug Use History: None Reported Medications and Allergies Home Medications Medication Instructions Recorded Confirmed Type Furosemide [Lasix] 20 mg PO DAILY PRN 08/09/22 08/09/22 History Gabapentin [Gabapentin Oral Soln] 300 mg PO TID PRN 08/09/22 08/09/22 History Lisinopril-Hctz 20-12.5 mg 1 tab PO DAILY 08/09/22 08/09/22 History [Zestoretic 20-12.5] Pantoprazole Sodium [Protonix] 40 mg PO DAILY 08/09/22 08/09/22 History Allergies Allergy/AdvReac Type Severity Reaction Status Date / Time No Known Allergies Allergy Unverified 08/09/22 21:19 Physical Examination - Vital Signs Vital Signs: Vital Signs Temp Pulse Resp BP Pulse Ox 08/11/22 16:00 97.4 F L 75 16 133/77 99 08/11/22 14:00 56 L 14 09/10/22 12:28 98 08/11/22 12:00 97.4 F L 56 L 14 120/66 08/11/22 08:00 97.4 F L 70 18 131/76 95 08/11/22 04:00 98 F 69 16 130/77 100 08/11/22 00:00 77 19 142/74 97 08/10/22 22:38 89 18 08/10/22 22:01 89 18 08/10/22 21:12 99 08/10/22 20:00 98.7 F 89 18 162/79 100 Intake and Output 08/11/22 08/11/22 08/11/22 06:59 14:59 22:59 Output Total 1200 375 Balance -1200 -375 Output: Urine 1200 375 Other: Voiding Method Indwelling Catheter Indwelling Catheter Patient is an elderly male, who is laying in the bed, appears comfort able. Patient is alert awake, appears slightly spacey, flat affect, appears edgy while being examined. Speech is severely dysarthric, appears almost unintelligible. Attention, concentration and fund of knowledge is limited due to severe dysarthria. On cranial nerve examination, pupils are equal, round and reacting to light, visual amanda could not be assessed because of patient's noncooperation. Extraocular muscles are intact with no nystagmus. Face is symmetric, patient did not protrude his tongue for me. He states he cannot. Lower cranial nerves could not be assessed because of patient's noncooperation. On muscle strength testing, (right/left) deltoid 1/1-2, biceps 4+/5-, triceps 4+/4+, billboard mechanic 4/4, hip flexion very weak, cannot perform. His ankle dorsiflexion 5-/4-3+. No obvious fasciculations visible. Deep tendon reflexes are (right/left) biceps 2+/1+, brachioradialis 1+/1+, knees 0/2, ankles 0/0, plantars are flat. Sensory to touch is equal with no neglect on double simultaneous stimulation. Cerebellar function could not be tested. Tone is slightly increased and bulk of muscles normal. Gait deferred.. On general examination, there is no carotid bruit or murmur, S1-S2 audible. Chest is clear on consultation. Abdomen is soft nontender. No organomegaly, bowel sounds present. patient has peripheral edema. Results - Laboratory Findings CBC and BMP: 08/11/22 07:34 08/11/22 07:34 Abnormal Lab Findings: Abnormal Labs 08/09/22 08/09/22 08/09/22 16:40 18:02 18:15 RBC 3.67 L Hgb 12.9 L Hct 36.5 L MCV MCH 35.1 H Plt Count Lymphocytes # 0.5 L PT INR APTT Carbon Monoxide, Quant BUN Creatinine Glucose POC Glucose (mg/dL) 138 H Plasma Lactic Acid Aureliano Calcium Urine Protein Trace H 08/09/22 08/09/22 08/09/22 18:15 18:15 18:15 RBC Hgb Hct MCV MCH Plt Count Lymphocytes # PT 16.3 H INR 1.6 H APTT >200.0 H* Carbon Monoxide, Quant BUN 24 H Creatinine Glucose 132 H POC Glucose (mg/dL) Plasma Lactic Acid Aureliano 2.3 H* Calcium Urine Protein 08/09/22 08/10/22 08/10/22 18:16 02:35 02:35 RBC 3.75 L Hgb 12.8 L Hct 37.4 L MCV MCH Plt Count Lymphocytes # 0.5 L PT INR APTT Carbon Monoxide, Quant >20.0 H* BUN Creatinine Glucose 129 H POC Glucose (mg/dL) Plasma Lactic Acid Aureliano Calcium Urine Protein 08/11/22 08/11/22 07:34 07:34 RBC 3.54 L Hgb 12.1 L Hct 36.4 L MCV 102.7 H MCH Plt Count 145 L Lymphocytes # 0.5 L PT INR APTT Carbon Monoxide, Quant BUN Creatinine 0.59 L Glucose POC Glucose (mg/dL) Plasma Lactic Acid Aureliano Calcium 8.1 L Urine Protein Assessment and Plan Assessment: * Acute intentional carbon monoxide poisoning, due to suicide attempt. Patient appears generalized weak. Computed tomography scan head reveals evidence of e saroj hypodensity in bilateral pallidum, which is typically seen with carbon monoxide poisoning. * Advanced ALS, with significant bulbar symptoms with severe dysarthria, and some dysphagia. Plan: * Patient's son mentions that patient has strictly declined against feeding tub e. * Continue IV hydration for now. * Patient has expressed about hospice to his son a week ago. Psychiatry on board for depression and suicide attempt. Sitter present at this time. * Symptomatic care. * Please call neurology if any other concerns. Thank you for the consult.
[2022-08-12] MEDS: LIDOCAINE 5% PATCH TOPICAL SCH (07:41)
[2022-08-12] MEDS: FAMOTIDINE 20 MG/2 ML VIAL IV SCH ×2 (07:42→20:53)
[2022-08-12] MEDS ORDERED: MORPHINE SULFATE 2 MG/ML SYRINGE IVP PRN (09:37)
--- NOTE | 2022-08-12 09:44 | P.PN ---
Subjective This is a pleasant 62 years old male with past medical history of CVA/TIA, currently not on home medication record documents. Patient could not provide information, no family at bedside. I made an effort to contact next of kin Roxana figueredo at [phone] and left a message to call back. Also I contacted his son Lencho Betancourt at [phone], there is no voicemail setup placed for him and I called the twice. No family at bedside. Also the bedside nurse did not have information about the patient. ER attending overnight already left. Patient is on face mask with nonrebreather 15 L/m, he does not look in respiratory distress. He looks at me but looks nonverbal, he can communicate by closing eyes when I ask him. However not sure if he is confused on. I asked him if he is in pain to close his eyes and he did, however is unknown where the pain at. Patient placed a lidocaine patch and Tylenol rectally when necessary. It looks patient and able to move both upper and lower extremities. He has some mild bilateral leg edema probably from disuse ER note was reviewed Vitas looks stable He was on nonrebreather at 12-15 L/m On admission,currently his oxygen saturation is 98%. Mildly tachycardic at 94. CBC is unremarkable except for mild anemia and leukopenia. INR is 1.6 but PTT more than 200. Carbon monoxide is more than 20 BMP is unremarkable. Liver enzymes elevated. Troponin is negative 2. TSH normal at 2.0. Negative salicylate, acetaminophen levels and serum alcohol level EKG showing normal sinus rhythm at [address]-T changes CTA of the brain and neck no acute process for both. CT of the brain: No acute process. There is diffuse cerebral atrophy and chronic small vessel ischemic changes. Chest x-ray: No process In the emergency room patient received 1 L of normal saline. 08/11/2022 Patient is more awake today, he follows commands, he can answer my questions with one warts and multiple sounds, when I ask him whether complain of decreased pain, and he asked him where at he told pain all over. A total visit chronic orally 4 days he says days but he could not specify. Patient receives one-time dose of Dilaudid, he is also on Tylenol 1000 from every 6 hours. We will increase his lidocaine patch into 2 of them. His CR level and Barbara wants excised decreased from more than 20 down to 1.8 yesterday. His breathing is stable and his mentation is improving. Currently he is on total liter per minute of oxygen via facial mask. Other vitals are stable. Labs stable. He had low-grade temperature yesterday 100.2, no more fever, no other signs of infection. He remains on gentle hydration D5 normal saline at 75 mL/h. Sitter at bedside for source of the precaution. Monitor PTT. Review of bladder scan I talked to Lencho Betancourt Which Covers the Same Them and Has Power Of Tool Polisher. He Told Me That His Father Has ALS for about 2 Years and He Follow-Up with [facility] in [facility]. At baseline he can walk by himself with no cane, he has daily difficulty talking, He can feed himself and cleaning himself over its hard for him to eat so he has to use small bites, he did help also with getting in and out of the shower. Physical me his father except. His wishes to be under hospice care and that his son and his sister was trying to get him into hospice, his son confirmed to me that he is DO NOT RESUSCITATE , were discussed with him, he wants to hold on hospice for now to full evaluation. Prognosis remains guarded 08/12/2022 pt is more awake and interactive today compared to the last two days, he follows commands , he has significant bulbar symptoms , he barely can move both upper and lower extremity, only for a few centimeters. And barely above the bed. Patient also has been complaining from pain when asking the twice. As per staff his pain is better controlled on 1 mg every 4 hours. However since patient is still complaining from pain to me and still his mentation is has not worsened and actually improved therefore we will increase the frequency of morphine and 2 every 3 hours and acid of 4 hours. Neurology and psychiatry input is appreciated and noted. Looks like patient has advanced ALS with significant bulbar symptoms of dys arthria and dysphagia. Swallow evaluation has been ordered and is pending which could be done tomorrow after the weekend. Distal on gentle hydration D5 normal saline at 75 mL/h. no family at bedside No family at bedside Prognosis is very guarded Objective - Vital Signs Vital signs: Vital Signs Temp 98.9 F 08/12/22 07:33 Pulse 55 L 08/12/22 07:33 Resp 14 08/12/22 07:33 BP 144/70 08/12/22 07:33 Pulse Ox 96 08/12/22 07:33 FiO2 Intake & Output 08/11/22 08/12/22 08/12/22 18:59 06:59 18:59 Intake Total 900 Output Total 375 500 Balance -375 400 Intake: Intake, IV Titration 900 Amount Dextrose 5%-0.9% NaCl 1, 900 000 ml @ 75 mls/hr IV . [id number] [facility] Rx#:[id number] Output: Urine 375 500 Uretheral (Alexander) 500 Other: Voiding Method Indwelling Catheter Indwelling Catheter Indwelling Catheter - Exam -GENERAL: The patient is more awake, he can consider with one towards and he follows commands but slow to move,, his sounds looks muffled. HEENT: Pupils are round and equally reacting to light. EOMI. No scleral icterus. No conjunctival pallor. Normocephalic, atraumatic. No pharyngeal erythema. No thyromegaly. CARDIOVASCULAR: S1 and S2 present. No murmurs, rubs, or gallops. -PULMONARY: Chest is clear to auscultation, no wheezing or crackles. Patient on a breathing mask ABDOMEN: Soft, nontender, nondistended, normoactive bowel sounds. No palpable organomegaly. MUSCULOSKELETAL: No joint swelling or deformity. EXTREMITIES: No cyanosis, clubbing, or pedal edema. -NEUROLOGICAL: Patient complained eyes but has mask face, not moving upper or lower extremities. Exam is limited by patient condition SKIN: No rashes. no petechiae. More - Labs CBC & Chem 7: 08/11/22 07:34 08/11/22 07:34 Labs: Abnormal Lab Results - Last 24 Hours (Table) 08/11/22 08/11/22 Range/Units 07:34 07:34 RBC 3.54 L (4.30-5.90) m/uL Hgb 12.1 L (13.0-17.5) gm/dL Hct 36.4 L (39.0-53.0) % MCV 102.7 H (80.0-100.0) fL Plt Count 145 L (150-450) k/uL Lymphocytes # 0.5 L (1.0-4.8) k/uL Creatinine 0.59 L (0.66-1.25) mg/dL Calcium 8.1 L (8.4-10.2) mg/dL Assessment and Plan Assessment: Acute Carbon monoxide poisoning, improved Advanced amyotrophic lateral sclerosis with significant bulbar symptoms of dysphagia and dysarthria depression and suicidal attempts Altered mental status, secondary to metabolic/toxic encephalopathy. Resolved Plan: This is a pleasant 62 years old male with a ALS presents with CO poisoning Check swallow evaluation tomorrow morning Follow-up with neurology and pulmonary service recommendation. Psychiatric service on the case Keep nothing by mouth with gentle hydration and change his fluids to D5 normal saline at 75 mL/h continue with morphine 1 mg every 3 hours Pain management with lidocaine and Tylenol when necessary. Labs and medication were reviewed.. Continue same treatment. Continue with symptomatic treatment. Resume home medication. Monitor lytes and vitals. DVT and GI prophylaxis. Further recommendations as per clinical course of the patient DVT prophylaxis: Subcutaneous heparin GI Prophylaxis: Pepcid Prognosis is guarded
[2022-08-12] MEDS ORDERED: MORPHINE SULFATE 2 MG/ML SYRINGE IVP STA (10:11)
--- NOTE | 2022-08-12 17:45 | P.CN ---
Psychiatric Consult - . Consult date: 08/11/22 Consult:: IDENTIFYING DATA: This patient is a 62 year old male with advances ALS, who lives with his son. REASON FOR REFERRAL: Psychiatry was consulted for "possible suicide attempt". HISTORY OF PRESENT ILLNESS: The patient presented to the hospital 08/09/2022 after having been found by his son in the garage slumped over the riding lawnmower that had been running, and it was determined he had carbon monoxide poisoning in the ER. Patient has difficulty swallowing and speaking, has difficulty moving his extremities. He had expressed his wishes to be sent to hospice prior to this incident and his family was looking into hospice options. He had reportedly made suicidal statements prior to this Nurse reports that patient has confirmed this was a suicide attempt to his medical team. On my assessment, patient is found laying in bed with his family (sister and 2 nieces) at bedside who stay for the assessment per his request. He has difficulty speaking and communicates with hand squeezes or eye blinks (1 squeeze/blink for no, 2 squeezes/blinks for yes). He admits to depressed mood, is tearful at times, but communicates he does not want antidepressants. He admits this was a suicide attempt. He denies active suicidal thoughts currently, however he does appear to be in emotional distress, is tearful. He only speaks to say he is in "pain" and appears to be in anxious distress until the nurse starts him on morphine for pain which calms him almost immediately. He is currently NPO, is getting his meds as IV, and is awaiting a swallow study. There is no evidence of psychosis or willian. There is no history of drug or alcohol abuse. He is a former smoker. PAST PSYCHIATRIC HISTORY: Sister provides history due to patient's current difficulty speaking. Sister reports patient was "very depressed" after their father . There is no known history of willian, psychosis, psychotropic medications, psychiatric hospitalizations, or prior suicide attempts. PAST MEDICAL HISTORY: CVA/TIA, advanced ALS ALLERGIES: as per EMR. CHEMICAL DEPENDENCY HISTORY: as per HPI. FAMILY PSYCHIATRIC/SUBSTANCE USE HISTORY: None known. SOCIAL HISTORY: Parents both . , lives with his only child - his son. Has two sisters who are involved in his care. MENTAL STATUS EXAM: General Appearance: Patient appears older than stated age, fair hygiene, dressed in hospital gown, ill appearing. Behavior: Patient appears in anxious distress due to pain, is tearful, calms once morphine is given. Speech: Patient's speech is dysarthic due to severity of ALS. Mood/Affect: Patient admits to depressed/sad mood, affect is depressed/anxious/labile/tearful. Suicidality/Homicidality: Patient denies having any current suicidal or homicidal ideation. He is status-post suicide attempt by CO poisoning. Perceptions: No visual hallucinations or auditory hallucinations. Though content/process: There is no evidence of any delusional thought content. Unable to assess thought process due to difficulty speaking. Memory and concentration: Not able to fully assess due to difficulty speaking. Judgment and insight: Not able to fully assess due to difficulty speaking. IMPRESSIONS: Unspecified depressive disorder Suicide attempt by CO poisoning PLAN: -At this time patient DOES meet criteria for inpatient psychiatric admission, however due to the severity of his medical condition he is NOT appropriate for the inpatient psychiatry unit. -Patient DOES NOT have decision making capacity at this time and is unable to reason through and communicate/appreciate the risks, benefits and alternatives to treatment. Defer to surrogate decision maker, which at this time appears to be his son. -Delirium precautions recommended with patient including - avoiding use COMPENSATION AND BENEFITS ADVISOR sedatives (except for pain management as appropriate), limit anti-cholinergic medications when possible, frequent re-orientation, minimize use of restraints, open window shades during the day and close them at night. -Agree with plan for palliative consult and hospice. -Regarding medications, at this time patient has not been cleared for oral medications and is given medications via IV. If patient is able to resume oral medications, consider starting Lexapro 5 mg daily for depression. -Continue 1:1 sitter for safety while on the medical floor. -Communicated plan to patient's nurse. -Will continue to follow along. -Please contact with any questions. 08/11/22 11:38 08/12/22 16:56 08/12/22 17:14
[2022-08-12] MEDS ORDERED: KETOROLAC 15 MG/ML 1 ML VIAL IVP STA (18:39)
[2022-08-13] MEDS: MORPHINE SULFATE 2 MG/ML SYRINGE IVP PRN ×5 (00:49→13:28)
[2022-08-13] MEDS: DEXTROSE 5%-0.9% NACL 1,000 ML IV SCH (06:28)
[2022-08-13 07:53] VITALS: BP 197/88; PULSE 88; RESP 16; TEMP 98.3
[2022-08-13] MEDS: LIDOCAINE 5% PATCH TOPICAL SCH (08:02)
[2022-08-13] MEDS: FAMOTIDINE 20 MG/2 ML VIAL IV SCH (08:05)
--- NOTE | 2022-08-13 10:02 | P.PN ---
Progress Note - Text Progress Note Date: 08/13/22 Attempted to reach patient's son, Lencho, via telephone twice ([phone] & [phone]) to set up meeting to discuss palliative care/hospice. No answer, unable to leave voicemail. Ashley Serrano [facility] [id number] Email: [email or web address]
--- NOTE | 2022-08-13 14:21 | P.DS ---
Providers Date of admission: 08/09/22 21:10 Expected date of discharge: 08/13/22 Attending physician: Nai Madison Consults: 08/09/22 21:31 Consult to Palliative Care Urgent Consulting Provider: Ashley Serrano Consult Reason/Comments: als Do you want consulting provider notified?: Yes 08/10/22 08:41 Consult Physician Routine Consulting Provider: Edie Schroeder Consult Reason/Comments: ALS Do you want consulting provider notified?: Yes 08/10/22 08:42 Consult Physician Urgent Consulting Provider: Wale Chavis Consult Reason/Comments: co posining Do you want consulting provider notified?: Yes 08/10/22 15:35 Consult Physician Stat Consulting Provider: Jose Monroy Consult Reason/Comments: possible suicide attempt Do you want consulting provider notified?: Yes Primary care physician: Howard Malone MD Hospital Course: Discharge diagnoses; Acute Carbon monoxide poisoning, improved Advanced amyotrophic lateral sclerosis with significant bulbar symptoms of dysphagia and dysarthria depression and suicidal attempts Altered mental status, secondary to metabolic/toxic encephalopathy. Resolved Plan: Patient is being discharged to inpatient [facility] hospice. Discharge orders placed. Hospital course; Patient is a 62-year-old male who has been diagnosed with ALS for about 2 years was brought to the hospital by ambulance on 08/09/2022 at 5:58 PM for intentional carbon monoxide poisoning. Patient not able to provide any history, therefore history obtained from patient's son. Patient so far has been able to walk without any assistive device, although he does stumble but no frequent falls. Patient's symptoms of ALS mainly involves bulbar region with involvement of his speech and some swallowing difficulty. Patient apparently was admitted to the hospital because of suicide attempt with carbon monoxide poisoning. As per EMS flow sheet when they arrived, patient was in the driveway sitting on his 0 turned riding lawnmower veering are non-breather receiving high flow oxygen. fire department on the scene prior to EMS arrival states patient was found in his garage sitting on his lawnmower while it was I doing and he was slumped over to the right side. Garage was closed. Fuel tank is still full, however the lawnmower being newer model is a low fuel consumption antineutrophilic. Patient is unresponsive completely. Patient has no visible trauma noted. No evidence of drug or alcohol usage. Patient was last seen by his son at 5:30 AM before he went for work. Patient was fine this morning before he went to work until he came back and found him in the garage with the garage door closed. Patient does have a very flushed appearance and presenting with signs and symptoms of acute carbon monoxide poisoning. CBC is unremarkable except for mild anemia and leukopenia. INR is 1.6 but PTT more than 200. Carbon monoxide is more than 20 BMP is unremarkable. Liver enzymes elevated. Troponin is negative 2. TSH normal at 2.0. Negative salicylate, acetaminophen levels and serum alcohol level EKG showing normal sinus rhythm at [address]-T changes CTA of the brain and neck no acute process for both. CT of the brain: No acute process. There is diffuse cerebral atrophy and chronic small vessel ischemic changes. Chest x-ray: No process In the emergency room patient received 1 L of normal saline. 08/11/2022 Patient is more awake today, he follows commands, he can answer my questions with one warts and multiple sounds, when I ask him whether complain of decreased pain, and he asked him where at he told pain all over. A total visit chronic orally 4 days he says days but he could not specify. Patient receives one-time dose of Dilaudid, he is also on Tylenol 1000 from every 6 hours. We will increase his lidocaine patch into 2 of them. His CR level and Barbara wants excised decreased from more than 20 down to 1.8 yesterday. His breathing is stable and his mentation is improving. Currently he is on total liter per minute of oxygen via facial mask. Other vitals are stable. Labs stable. He had low-grade temperature yesterday 100.2, no more fever, no other signs of infection. He remains on gentle hydration D5 normal saline at 75 mL/h. Sitter at bedside for source of the precaution. Monitor PTT. Review of bladder scan I talked to Lencho Betancourt Which Covers the Same Them and Has Power Of Co Teacher. He Told Me That His Father Has ALS for about 2 Years and He Follow-Up with ALS Clinic in [facility] Part of [facility]. At baseline he can walk by himself with no cane, he has daily difficulty talking, He can feed himself and cleaning himself over its hard for him to eat so he has to use small bites, he did help also with getting in and out of the shower. Physical me his father except. His wishes to be under hospice care and that his son and his sister was trying to get him into hospice, his son confirmed to me that he is DO NOT RESUSCITATE , were discussed with him, he wants to hold on hospice for now to full evaluation. Prognosis remains guarded 08/12/2022 pt is more awake and interactive today compared to the last two days, he follows commands , he has significant bulbar symptoms , he barely can move both upper and lower extremity, only for a few centimeters. And barely above the bed. Patient also has been complaining from pain when asking the twice. As per staff his pain is better controlled on 1 mg every 4 hours. However since patient is still complaining from pain to me and still his mentation is has not worsened and actually improved therefore we will increase the frequency of morphine and 2 every 3 hours and acid of 4 hours. Neurology and psychiatry input is appreciated and noted. Looks like patient has advanced ALS with significant bulbar symptoms of dysarthria and dysphagia. Swallow evaluation has been ordered and is pending which could be done tomorrow after the weekend. Distal on gentle hydration D5 normal saline at 75 mL/h. no family at bedside No family at bedside Prognosis is very guarded 08/13. Patient was seen by palliative care team, patient will be transferred to inpatient hospice under [facility]. Patient Condition at Discharge: Serious Plan - Discharge Summary Discharge Rx Participant: No New Discharge Prescriptions: No Action Lisinopril-Hctz 20-12.5 mg [Zestoretic 20-12.5] 1 tab PO DAILY Gabapentin [Gabapentin Oral Soln] 300 mg PO TID PRN PRN Reason: Pain Furosemide [Lasix] 20 mg PO DAILY PRN PRN Reason: LEG SWELLING Pantoprazole Sodium [Protonix] 40 mg PO DAILY Discharge Medication List Furosemide [Lasix] 20 mg PO DAILY PRN 08/09/22 [History] Gabapentin [Gabapentin Oral Soln] 300 mg PO TID PRN 08/09/22 [History] Lisinopril-Hctz 20-12.5 mg [Zestoretic 20-12.5] 1 tab PO DAILY 08/09/22 [History] Pantoprazole Sodium [Protonix] 40 mg PO DAILY 08/09/22 [History] Follow up Appointment(s)/Referral(s): None,Stated [REFERRING] - 1-2 days Activity/Diet/Wound Care/Special Instructions: patient is being flipped to inpatient [facility] hospice Discharge Disposition: DISCH TO HOSPICE MED FACILTY
== END 2022-08-13 15:57 | disposition hospice, inpatient (51) | DRG 917 ==
LOC: SUPCPDRO 17:58 → EC 17:58 → 3SCARD 21:10
PROVIDERS: ADMIT Hospitalist; ATTEND Hospitalist
DX: T58.02XA Toxic effect of carbon monoxide from motor vehicle exhaust, intentional self-harm, initial encounter (principal); G92.8 Other toxic encephalopathy; G12.21 Amyotrophic lateral sclerosis; D64.9 Anemia, unspecified; I10 Essential (primary) hypertension; M24.59 Contracture, other specified joint; R13.10 Dysphagia, unspecified; K21.9 Gastro-esophageal reflux disease without esophagitis; Z66 Do not resuscitate; F32.A Depression, unspecified; R47.1 Dysarthria and anarthria; Z79.899 Other long term (current) drug therapy; Z86.73 Personal history of transient ischemic attack (TIA), and cerebral infarction without residual deficits; Z51.5 Encounter for palliative care; Z74.01 Bed confinement status; Z87.891 Personal history of nicotine dependence
CPT/HCPCS: 36415; 70450; 70496; 70498; 71045; 80048; 80053; 80143; 80179; 80306; 80320; 81003; 82140; 82375; 82803; 83605; 83735; 84443; 84484; 85025; 85610; 85730; 93005; 94760; 96361; 96374; 99291

== ENCOUNTER 2022-08-13 15:32 | Observation (INO) | payer MEDICAID ==
[2022-08-13] MEDS ORDERED: ONDANSETRON 4 MG/2 ML VIAL IVP PRN (15:39)
[2022-08-13] MEDS ORDERED: ACETAMINOPHEN SUPPOSITORY 650 MG SUPP RECTAL PRN (15:39)
[2022-08-13] MEDS ORDERED: LORazepam 2 MG/ML INJ IV PRN (15:39)
[2022-08-13] MEDS ORDERED: SCOPOLAMINE 1 MG/72 HR PATCH TRANSDERM PRN (15:39)
[2022-08-13] MEDS ORDERED: MORPHINE SULFATE 2 MG/ML SYRINGE IV PRN (15:52)
[2022-08-13] MEDS: MORPHINE SULFATE (100 MG/2 ML) 100 MG in SODIUM CHLORIDE 0.9% 100 ML IV SCH (16:38)
[2022-08-13] MEDS: LORazepam 1 MG/0.5 ML VIAL IV PRN ×2 (18:39→20:44)
[2022-08-14 07:51] VITALS: BP 165/76; PULSE 102; TEMP 99
--- NOTE | 2022-08-14 15:04 | P.PN ---
Subjective Progress Note Date: 08/14/22 Patient is a 62-year-old male who has been diagnosed with ALS for about 2 years was brought to the hospital by ambulance on 08/09/2022 at 5:58 PM for intentional carbon monoxide poisoning. Patient not able to provide any history, therefore history obtained from patient's son. Patient so far has been able to walk without any assistive device, although he does stumble but no frequent falls. Patient's symptoms of ALS mainly involves bulbar region with involvement of his speech and some swallowing difficulty. Patient apparently was admitted to the hospital because of suicide attempt with carbon monoxide poisoning. As per EMS flow sheet when they arrived, patient was in the driveway sitting on his 0 turned riding lawnmower veering are non-breather receiving high flow oxygen. fire department on the scene prior to EMS arrival states patient was found in his garage sitting on his lawnmower while it was I doing and he was slumped over to the right side. Garage was closed. Fuel tank is still full, however the lawnmower being newer model is a low fuel consumption antineutrophilic. Patient is unresponsive completely. Patient has no visible trauma noted. No evidence of drug or alcohol usage. Patient was last seen by his son at 5:30 AM before he went for work. Patient was fine this morning before he went to work until he came back and found him in the garage with the garage door closed. Patient does have a very flushed appearance and presenting with signs and symptoms of acute carbon monoxide poisoning. CBC is unremarkable except for mild anemia and leukopenia. INR is 1.6 but PTT more than 200. Carbon monoxide is more than 20 BMP is unremarkable. Liver enzymes elevated. Troponin is negative 2. TSH normal at 2.0. Negative salicylate, acetaminophen levels and serum alcohol level EKG showing normal sinus rhythm at [address]-T changes CTA of the brain and neck no acute process for both. CT of the brain: No acute process. There is diffuse cerebral atrophy and chronic small vessel ischemic changes. Chest x-ray: No process In the emergency room patient received 1 L of normal saline. 08/11/2022 Patient is more awake today, he follows commands, he can answer my questions with one warts and multiple sounds, when I ask him whether complain of decreased pain, and he asked him where at he told pain all over. A total visit chronic orally 4 days he says days but he could not specify. Patient receives one-time dose of Dilaudid, he is also on Tylenol 1000 from every 6 hours. We will increase his lidocaine patch into 2 of them. His CR level and Barbara wants excised decreased from more than 20 down to 1.8 yesterday. His breathing is stable and his mentation is improving. Currently he is on total liter per minute of oxygen via facial mask. Other vitals are stable. Labs stable. He had low-grade temperature yesterday 100.2, no more fever, no other signs of infection. He remains on gentle hydration D5 normal saline at 75 mL/h. Sitter at bedside for source of the precaution. Monitor PTT. Review of bladder scan I talked to Lencho Betancourt Which Covers the Same Them and Has Power Of Infrastructure Project Manager. He Told Me That His Father Has ALS for about 2 Years and He Follow-Up with ALS Clinic in [facility] of [facility]. At baseline he can walk by himself with no cane, he has daily difficulty talking, He can feed himself and cleaning himself over its hard for him to eat so he has to use small bites, he did help also with getting in and out of the shower. Physical me his father except. His wishes to be under hospice care and that his son and his sister was trying to get him into hospice, his son confirmed to me that he is DO NOT RESUSCITATE , were discussed with him, he wants to hold on hospice for now to full evaluation. Prognosis remains guarded 08/12/2022 pt is more awake and interactive today compared to the last two days, he follows commands , he has significant bulbar symptoms , he barely can move both upper and lower extremity, only for a few centimeters. And barely above the bed. Patient also has been complaining from pain when asking the twice. As per staff his pain is better controlled on 1 mg every 4 hours. However since patient is still complaining from pain to me and still his mentation is has not worsened and actually improved therefore we will increase the frequency of morphine and 2 every 3 hours and acid of 4 hours. Neurology and psychiatry input is appreciated and noted. Looks like patient has advanced ALS with significant bulbar symptoms of dysarthria and dysphagia. Swallow evaluation has been ordered and is pending which could be done tomorrow after the weekend. Distal on gentle hydration D5 normal saline at 75 mL/h. no family at bedside No family at bedside Prognosis is very guarded 08/13. Patient was seen by palliative care team, patient will be transferred to inpatient hospice under [facility]. 08/14. Patient seen and examined. Patient currently sedated, unable to obtain a detailed review of system. he does not look in acute distress. REVIEW OF SYSTEMS: Review of systems cannot be obtained because of patient's current mental status PHYSICAL EXAMINATION: GENERAL: The patient is sedated and lethargic HEENT: Normocephalic, atraumatic. No pharyngeal erythema. No thyromegaly. CARDIOVASCULAR: S1 and S2 present. No murmurs, rubs, or gallops. PULMONARY: Coarse breath sounds bilaterally, no wheeze ABDOMEN: Soft, nontender, nondistended, normoactive bowel sounds. No palpable organomegaly. MUSCULOSKELETAL: No joint swelling or deformity. EXTREMITIES: No cyanosis, clubbing, or pedal edema. NEUROLOGICAL: Neurologic exam cannot be performed because of patient's current mental status SKIN: No rashes. Assessment and plan Acute Carbon monoxide poisoning, improved Advanced amyotrophic lateral sclerosis with significant bulbar symptoms of dysphagia and dysarthria depression and suicidal attempts Altered mental status, secondary to metabolic/toxic encephalopathy. Resolved Plan: This is a pleasant 62 years old male with a ALS presents with CO poisoning Currently under care of [facility] Continue comfort care measures Objective - Vital Signs Vital signs: Vital Signs Temp 99.0 F 08/14/22 07:42 Pulse 102 H 08/14/22 07:42 Resp 16 08/14/22 07:42 BP 165/76 08/14/22 07:42 Pulse Ox 91 L 08/14/22 07:42 FiO2 Intake & Output 08/13/22 08/14/22 08/14/22 18:59 06:59 18:59 Intake Total 202.288 13.95 Output Total 390 1200 325 Balance -187.712 -1186.05 -325 Weight 83.9 kg Intake: IV 10 0.9 10 Intake, IV Titration 2.288 3.95 Amount Morphine Sulfate (100 mg/ 2.288 3.95 2 ml) 100 mg In Sodium Chloride 0.9% 100 ml @ 1 MG/HR 1.02 mls/hr IV . Q24H KIRSTY Rx#:[id number] Oral 200 Output: Urine 390 1200 325 Other: Voiding Method Indwelling Catheter
[2022-08-14] MEDS: MORPHINE SULFATE (100 MG/2 ML) 100 MG in SODIUM CHLORIDE 0.9% 100 ML IV SCH (15:59)
[2022-08-14 19:39] VITALS: RESP 10
--- NOTE | 2022-08-15 13:20 | P.DS ---
Providers Date of admission: 08/13/22 16:04 Expected date of discharge: 08/15/22 Attending physician: Ari Echevarria MD Primary care physician: Howard Malone MD Hospital Course: Preliminary cause of ; Acute Respiratory failure Advanced amyotrophic lateral sclerosis with significant bulbar symptoms of dysphagia and dysarthria Discharge diagnoses; Acute Carbon monoxide poisoning, improved Advanced amyotrophic lateral sclerosis with significant bulbar symptoms of dysphagia and dysarthria depression and suicidal attempts Altered mental status, secondary to metabolic/toxic encephalopathy. Resolved Hospital course; Patient is a 62-year-old male who has been diagnosed with ALS for about 2 years was brought to the hospital by ambulance on 08/09/2022 at 5:58 PM for intentional carbon monoxide poisoning. Patient not able to provide any history, therefore history obtained from patient's son. Patient so far has been able to walk without any assistive device, although he does stumble but no frequent falls. Patient's symptoms of ALS mainly involves bulbar region with involvement of his speech and some swallowing difficulty. Patient apparently was admitted to the hospital because of suicide attempt with carbon monoxide poisoning. As per EMS flow sheet when they arrived, patient was in the driveway sitting on his 0 turned riding lawnmower veering are non-breather receiving high flow oxygen. fire department on the scene prior to EMS arrival states patient was found in his garage sitting on his lawnmower while it was I doing and he was slumped over to the right side. Garage was closed. Fuel tank is still full, however the lawnmower being newer model is a low fuel consumption antineutrophilic. Patient is unresponsive completely. Patient has no visible trauma noted. No evidence of drug or alcohol usage. Patient was last seen by his son at 5:30 AM before he went for work. Patient was fine this morning before he went to work until he c brisa back and found him in the garage with the garage door closed. Patient does have a very flushed appearance and presenting with signs and symptoms of acute carbon monoxide poisoning. CBC is unremarkable except for mild anemia and leukopenia. INR is 1.6 but PTT more than 200. Carbon monoxide is more than 20 BMP is unremarkable. Liver enzymes elevated. Troponin is negative 2. TSH normal at 2.0. Negative salicylate, acetaminophen levels and serum alcohol level EKG showing normal sinus rhythm at [address]-T changes CTA of the brain and neck no acute process for both. CT of the brain: No acute process. There is diffuse cerebral atrophy and chronic small vessel ischemic changes. Chest x-ray: No process In the emergency room patient received 1 L of normal saline. 08/11/2022 Patient is more awake today, he follows commands, he can answer my questions with one warts and multiple sounds, when I ask him whether complain of decreased pain, and he asked him where at he told pain all over. A total visit chronic orally 4 days he says days but he could not specify. Patient receives one-time dose of Dilaudid, he is also on Tylenol 1000 from every 6 hours. We will increase his lidocaine patch into 2 of them. His CR level and Barbara wants excised decreased from more than 20 down to 1.8 yesterday. His breathing is stable and his mentation is improving. Currently he is on total liter per minute of oxygen via facial mask. Other vitals are stable. Labs stable. He had low-grade temperature yesterday 100.2, no more fever, no other signs of infection. He remains on gentle hydration D5 normal saline at 75 mL/h. Sitter at bedside for source of the precaution. Monitor PTT. Review of bladder scan I talked to Lencho Betancourt Which Covers the Same Them and Has Power Of Lens Examiner. He Told Me That His Father Has ALS for about 2 Years and He Follow-Up with ALS Clinic in [facility] of [facility]. At baseline he can walk by himself with no cane, he has daily difficulty talking, He can feed himself and cleaning himself over its hard for him to eat so he has to use small bites, he did help also with getting in and out of the shower. Physical me his father except. His wishes to be under hospice care and that his son and his sister was trying to get him into hospice, his son confirmed to me that he is DO NOT RESUSCITATE , were discussed with him, he wants to hold on hospice for now to full evaluation. Prognosis remains guarded 08/12/2022 pt is more awake and interactive today compared to the last two days, he follows commands , he has significant bulbar symptoms , he barely can move both upper and lower extremity, only for a few centimeters. And barely above the bed. Patient also has been complaining from pain when asking the twice. As per staff his pain is better controlled on 1 mg every 4 hours. However since patient is still complaining from pain to me and still his mentation is has not worsened and actually improved therefore we will increase the frequency of morphine and 2 every 3 hours and acid of 4 hours. Neurology and psychiatry input is appreciated and noted. Looks like patient has advanced ALS with significant bulbar symptoms of dysarthria and dysphagia. Swallow evaluation has been ordered and is pending which could be done tomorrow after the weekend. Distal on gentle hydration D5 normal saline at 75 mL/h. no family at bedside No family at bedside Prognosis is very guarded 08/13. Patient was seen by palliative care team, patient will be transferred to inpatient hospice under [facility]. 08/14. Patient was comfort care, Hospice on board. Patient pronounced by the front end developer javascript html css team Plan - Discharge Summary New Discharge Prescriptions: No Action Lisinopril-Hctz 20-12.5 mg [Zestoretic 20-12.5] 1 tab PO DAILY Gabapentin [Gabapentin Oral Soln] 300 mg PO TID PRN PRN Reason: Pain Furosemide [Lasix] 20 mg PO DAILY PRN PRN Reason: LEG SWELLING Pantoprazole Sodium [Protonix] 40 mg PO DAILY Discharge Medication List Furosemide [Lasix] 20 mg PO DAILY PRN 08/09/22 [History] Gabapentin [Gabapentin Oral Soln] 300 mg PO TID PRN 08/09/22 [History] Lisinopril-Hctz 20-12.5 mg [Zestoretic 20-12.5] 1 tab PO DAILY 08/09/22 [History] Pantoprazole Sodium [Protonix] 40 mg PO DAILY 08/09/22 [History] Discharge Disposition: - Preliminary Cause of Preliminary Cause of : Acute respiratory failure
== END 2022-08-14 22:00 | disposition expired ==
LOC: 3SCARD 16:04
PROVIDERS: ADMIT Internal Medicine; ATTEND Internal Medicine
DX: J96.00 Acute respiratory failure, unspecified whether with hypoxia or hypercapnia (principal); T58.92XA Toxic effect of carbon monoxide from unspecified source, intentional self-harm, initial encounter; G12.21 Amyotrophic lateral sclerosis; F32.A Depression, unspecified; G92.8 Other toxic encephalopathy; D64.9 Anemia, unspecified; D72.819 Decreased white blood cell count, unspecified; R74.8 Abnormal levels of other serum enzymes
CPT/HCPCS: 96376; 96365; 96375; G0378 ×2; G0379; J2060; J2270 ×2